=== PATIENT | female | born 1985 | race Two or more races ===

== ENCOUNTER → 2024-09-08 | Outpatient (CLI) | payer MEDICAID, SELFPAY ==
--- NOTE | 2024-09-08 | XR_ITS ---
Examination: Complete OB ultrasound greater than 14 weeks Date and time of exam: September 08, 2024 1200 Indications: Diagnosis high risk Findings: Viable intrauterine single fetus with single amniotic sac presentation variable Cardiac motion 150 BPM Placenta fundal grade 2 Insertion seen Amniotic fluid index 10.9 cm Cervix 2.8 cm Ovaries obscured by bowel gas. Composite estimated gestational age based on BPD, head circumference, abdominal circumference, femur length is 22 weeks 2 days Estimated weight 499 g. Survey of intracranial anatomy, spinal anatomy, abdominal anatomy, four-chamber heart performed with no abnormalities identified. Impression: Viable intrauterine gestation variable presentation
== END | disposition home or self-care (01) ==
PROVIDERS: Referring Provider Obstetrics & Gynecology; Visit Provider Obstetrics & Gynecology
DX: O09.92 Supervision of high risk pregnancy, unspecified, second trimester (principal); Z3A.22 22 weeks gestation of pregnancy
CPT/HCPCS: 76805

== ENCOUNTER 2024-12-31 13:40 | Outpatient (AMB) | payer MEDICAID, SELFPAY ==
[2024-12-31 14:06] VITALS: BP 128/81; PULSE 84; RESP 17; TEMP 36.7; O2SAT 99; BMI 33.8
--- NOTE | 2024-12-31 14:06 | AMB.OBINITIA ---
Vital Signs 12/31/24 14:06 Height 1.6 m Height Method Measured Weight 86.75 kg Weight Measurement Method Standing Scale BMI 33.8 BP 128/81 Blood Pressure Source Automatic Cuff Blood Pressure Location Right Upper Arm Position Sitting Respiration 17 Pulse 84 Pulse Source Monitor Temp 98.0 F Temp Source Temporal Artery Scan Pulse Oximetry (%) 99 Oxygen Delivery Method Room Air Allergies/Home Meds Allergies & Medications Allergies almond Allergy (Verified 01/02/25 08:47) Hives Medication Reconciliation vitamin#30 30 mg iron-10 mg iron-folic acid 1 mg-omg3 capsule 1 cap PO QDAY 01/23/20 [History Confirmed 01/02/25] Intake Visit Data Collection New Patient or Established: New Patient not seen in past 3 years at [facility] (considered New) Reason for Visit:: DARYA Consent obtained for Telemed Visit: No Seen by Clinical Staff ONLY (RN/MA): No Shear Scrapman Required: No Do You Feel Safe at Home: Yes Authorities Contacted: N/A PCP or OBGYN visit in last 3 months: No Hx Now: Yes Are you currently on any form of Control: No Pain Present Currently: No Pain Scale Used: Feldman-Lovett/Numerical Pain scale:: 0 Smoking Status Smoking Status: Never smoker Questionnaires Covid-19 Vaccine Questionnaire Has patient been vacinated for Covid-19 Have you been vacinated for Covid-19: No PHQ-9 PHQ-2 Over the last 2 weeks, how often have you been bothered by any of the following problems? 1. Little interest or pleasure in doing things: not at all 2. Feeling down, depressed, or hopeless: not at all Total score: 0 PHQ-9 3. Trouble falling or staying asleep, or sleeping too much: Not at all 4. Feeling tired or having little energy: Not at all 5. Poor appetite or overeating: Not at all 6. Feeling bad about yourself - or that you are a failure or have let yourself or your family down: Not at all 7. Trouble concentrating on things, such as reading the newspaper or watching television: Not at all 8. Moving or speaking so slowly that other people could have noticed? - Or the opposite - being so fidgety or restless that you have been moving around a lot more than usual: not at all 9. Thoughts that you would be better off or of hurting yourself in some way: Not at all Total score: 0 If you checked off any problems, how difficult have these problems made it for you to do your work, take care of things at home, or get along with other people?: not difficult at all Source: Developed by Drs. Gavino Nassar, Linda Dickinson, Vladislav Mejia and colleagues, with an educational kailyn from [employer]. Social History Living Situation History Lives With: Children Housing: House Tobacco History Smoking Status: Never smoker Alcohol History Alcohol Intake: Never Domestic Abuse History Do You Feel Safe at Home: Yes History of Present Illness HPI Narrative Tracey Rosen, , presents for routine visit at 38 weeks gestation. No contractions, LOF, VB and reports good FM. Denies FRAZIER, VC, and epigastric pain. - Tracey Rosen is a 39-year-old at 38 weeks and 2 days gestation presenting for transfer of care from [facility]. 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, [place] 01/10/25 by 09/08 US. No CTX/LOF/VB, good FM, denies FRAZIER/VC/epigastric pain. Mild contractions, recent swelling, BP 128 (? from baseline 114). Obesity (BMI 34) only risk factor. FHR >200, cephalic on bedside US. Plan: send to L&D (4th floor) for NST, BPP, Completo-B. Schedule 1-week f/u. Refer to support. Menstrual History Menstrual reliability: definite Flow: normal Menstrual regularity: regular Monthly: Yes Age at menarche: 14 On control pills at conception: No Date of positive home test: 05/07/24 OB History : 5 Para: 4 Hx # Pregnancies: 0 Hx Total # of Abortions (Spontaneous & Elective): 0 # of Living Children: 4 Delivery History 1st : Child's name: JACQUE MACEDO sex: male Gestational age at delivery (weeks): 42 Delivery type: vaginal weight (lbs): 3628.739 g weight (oz): 396.893 g History of depression before or after : No 2nd : Child's name: JOSE LUIS MACEDO sex: male Gestational age at delivery (weeks): 40 Delivery type: vaginal weight (lbs): 4082.331 g weight (oz): 170.097 g History of depression before or after : No 3rd : Child's name: PIERCE BAKER sex: male Gestational age at delivery (weeks): 40 Delivery type: vaginal weight (lbs): 3628.739 g History of depression before or after : No 4th : Child's name: JOAQUÍN BAKER sex: male Gestational age at delivery (weeks): 40 Delivery type: vaginal weight (lbs): 3175.147 g weight (oz): 425.243 g History of depression before or after : No Infection History & Risk Evaluation History of STDs: none HIV risk evaluation: low risk Hepatitis B risk evaluation: low risk Patient or partner has history of Genital Herpes: No Genetic Screening & History Genetic Screening/Teratology Counseling - Includes patient, baby's father, or anyone in either family with: 1. Patient's age 35 years or older as of estimated date of delivery: No 2. Thalassemia (Omani, Bulgarian, Mediterranean, or Background); MCV less than 80: No 3. Neural Tube Defect (Meningomyelocele, Spina Bifida, or Anencephaly): No 4. Congenital Heart Defect: No 5. Down Syndrome: No 6. Kin-Sachs (Ashkenazi Scientologist, Cajun, [place]): No 7. Valeria Disease (Ashkenazi Scientologist): No 8. Familial Dysautonomia (Ashkenazi Scientologist): No 9. Sickle Cell Disease or Trait (): No 10. Hemophilia or other blood disorders: No 11. Muscular Dystrophy: No 12. Cystic Fibrosis: No 13. Desoto's Chorea: No 14. Mental Retardation/Autism: No Infection History Other (see comments) Source: [employer] Exam General General Appearance: alert, in no apparent distress and healthy appearing Head Head exam: atraumatic Neck Neck exam: Present normal inspection and trachea midline Chest Chest inspection: Present normal inspection and symmetric chest wall rise External exam: Present normal external exam; Absent tenderness Neuro Neurological exam: Present oriented X3 Psych Psychiatric exam: Present normal affect and normal mood Office Procedures OB Clinic LOC & Office Proc's Nursing/Assessment Patient Status: Initial/New Patient OB Clinic Nursing Assessment: Medication Reconciliation, Update PMH in EMR and Vital Signs OB Clinic Coordination of Care: Complex Care and Chronic Disease 1-5, Consent,records obtained, informed consent, 4+ Authorizations needed, Lab and Imaging orders and Results/Orders obtained Special Needs: Heart tones New Patient Charge New Patient Point Assignment: [id number] New 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 Patient reports mild contractions. Bedside ultrasound revealed tachycardia with heart rate over 200 bpm. Maternal blood pressure noted to be 128, elevated from patient's usual 114. Patient reports recent onset of swelling. Obesity is a significant risk factor with BMI of 34. No history of gestational diabetes or other complications reported. Plan - Proceed to Labor and Delivery (4th floor) for further evaluation - Complete Non-Stress Test (NST) - Perform Completo-B - Conduct Biophysical Profile (BPP) - Schedule one-week follow-up appointment - Visit office for resources 1. Progress Reviewed gestational age, growth, and heart rate. Planned frequent visits (every 2 weeks until 36 weeks, then weekly). 2. Instructed patient to monitor movements and report decreases immediately. 3. Testing Counseled on routine third-trimester labs per guidelines. Discussed potential need for ultrasound or monitoring based on risk factors. 4. Preeclampsia Precaution Educated on preeclampsia signs: severe headache, vision changes, right upper quadrant pain, sudden swelling. Advised urgent reporting of symptoms and discussed blood pressure monitoring if high risk. 5. Labor Precautions Reviewed labor signs: regular contractions, pelvic pressure, back pain, bleeding, or fluid leakage. Instructed to seek immediate care for these symptoms. 6. Lifestyle and Delivery Preparation Reinforced vitamins, nutrition, and safe activity. Discussed plan, pain management, and . Advised on labor preparation (e.g., hospital bag) and expectations. 7. Psychosocial Support Assessed emotional well-being and offered resources for mental health or parenting support.
== END 2024-12-31 14:41 | disposition home or self-care (01) ==
LOC: HODSOBC 13:40
PROVIDERS: Supervising Provider Obstetrics & Gynecology; Visit Provider Obstetrics & Gynecology
DX: O09.523 Supervision of elderly multigravida, third trimester (principal); O09.893 Supervision of other high risk pregnancies, third trimester; O99.213 Obesity complicating pregnancy, third trimester; O36.8330 Maternal care for abnormalities of the fetal heart rate or rhythm, third trimester, not applicable or unspecified; Z3A.38 38 weeks gestation of pregnancy
CPT/HCPCS: 99203; G0463

== ENCOUNTER 2024-12-31 14:57 | Outpatient (CLI) | payer MEDICAID, SELFPAY ==
[2024-12-31] VITALS (24 sets, daily range): BP systolic 124; BP diastolic 70; PULSE 68–83; RESP 20–100; TEMP 36.6; O2SAT 89–100; BMI 33.3
--- NOTE | 2024-12-31 15:08 | XR_ITS ---
Examination: Complete OB ultrasound greater than 14 weeks Date and time of exam: December 31, 2024, 1544 hours INDICATIONS: tachycardia in the doctor's office today Findings: Viable intrauterine single fetus with single amniotic sac presentation cephalic. Cardiac motion 162 BPM. Placenta fundal grade 3. A vertical cord insertion 3 vessel seen. Amniotic fluid index 5.2 cm. spine maternal right. Cervix 4.9 cm. Ovaries obscured by bowel gas.. Composite estimated gestational age based on BPD, head circumference, abdominal circumference, femur length is 37 weeks 4 days. Estimated weight 3313 g. Survey of intracranial anatomy, spinal anatomy, abdominal anatomy, four-chamber heart performed with no abnormalities identified. Impression: Viable intrauterine gestation cephalic presentation..
--- NOTE | 2024-12-31 15:08 | XR_ITS ---
Examination: Biophysical profile, ultrasound Date and time of exam: December 31, 2024 1537 hours INDICATIONS: tachycardia in the doctor's office today Technique: Multiple transabdominal sonographic images of the pelvis abdomen obtained. Attention is directed to the breathing movement, gross body movement, amniotic fluid volume and tone. Findings: Amniotic fluid index 5.9 cm Total biophysical profile is 8 of 8. breathing movement is 2. Gross body movement is 2. tone is 2. Qualitative amniotic fluid volume is 2 Impression: Biophysical profile is 8 of 8.
== END 2024-12-31 17:00 | disposition home or self-care (01) ==
LOC: S4S1 14:59 → S4SX 14:59
PROVIDERS: Referring Provider Obstetrics & Gynecology; Visit Provider Obstetrics & Gynecology
DX: O36.8330 Maternal care for abnormalities of the fetal heart rate or rhythm, third trimester, not applicable or unspecified (principal); Z3A.37 37 weeks gestation of pregnancy
CPT/HCPCS: 59025; 76805; 76819

== ENCOUNTER 2025-01-02 08:36 | Outpatient (CLI) | payer MEDICAID, SELFPAY ==
[2025-01-02 08:38] VITALS: BP 119/80; PULSE 91; RESP 100; RESP 18; TEMP 36.6
--- NOTE | 2025-01-02 08:41 | XR_ITS ---
Examination: Biophysical profile, ultrasound Date and time of exam: January 02, 2025, 0853 hrs. Indications: Low amniotic fluid index 5.2 cm on ultrasound December 31, 2024 Technique: Multiple transabdominal sonographic images of the pelvis abdomen obtained. Attention is directed to the breathing movement, gross body movement, amniotic fluid volume and tone. Findings: Amniotic fluid index 5.9 cm Total biophysical profile is 8 of 8. breathing movement is 2. Gross body movement is 2. tone is 2. Qualitative amniotic fluid volume is 2 Impression: Biophysical profile is 8 of 8.
[2025-01-02 08:43] VITALS: BMI 33.9
[2025-01-02 08:44] VITALS: PULSE 90; O2SAT 99
[2025-01-02 08:49] VITALS: PULSE 108; O2SAT 100
[2025-01-02 08:54] VITALS: PULSE 95; O2SAT 99
[2025-01-02 08:59] VITALS: PULSE 84; O2SAT 99
[2025-01-02 09:04] VITALS: PULSE 94; O2SAT 99
== END 2025-01-02 09:11 | disposition home or self-care (01) ==
LOC: S4S1 08:37 → S4SX 08:39
PROVIDERS: Referring Provider Obstetrics & Gynecology; Visit Provider Obstetrics & Gynecology
DX: Z34.83 Encounter for supervision of other normal pregnancy, third trimester (principal); Z36.89 Encounter for other specified antenatal screening; Z3A.38 38 weeks gestation of pregnancy
CPT/HCPCS: 59025; 76819

== ENCOUNTER 2025-01-05 10:21 | Outpatient (AMB) | payer MEDICAID, SELFPAY ==
--- NOTE | 2025-01-05 10:37 | AMB.OBVISIT ---
Vital Signs 01/05/25 10:38 Weight 84.992 kg Weight Measurement Method Standing Scale BP 122/82 Blood Pressure Source Automatic Cuff Blood Pressure Location Right Upper Arm Position Sitting Respiration 17 Pulse 94 Pulse Source Monitor Temp 98.0 F Temp Source Temporal Artery Scan Pulse Oximetry (%) 99 Oxygen Delivery Method Room Air Allergies/Home Meds Allergies & Medications Allergies almond Allergy (Verified 01/05/25 10:38) Hives Intake Visit Data Collection New Patient or Established: Established Patient (seen at [facility] within 3 years) Reason for Visit:: OBC Consent obtained for Telemed Visit: No Seen by Clinical Staff ONLY (RN/MA): No Bias Binding Folder Required: No Do You Feel Safe at Home: Yes Authorities Contacted: N/A PCP or OBGYN visit in last 3 months: Yes Date of Last PCP or OBGYN visit: 01/02/25 Hx Now: Yes Are you currently on any form of Control: No Pain Present Currently: No Pain Scale Used: Feldman-Lovett/Numerical Pain scale:: 0 Smoking Status Smoking Status: Never smoker Questionnaires Covid-19 Vaccine Questionnaire Has patient been vacinated for Covid-19 Have you been vacinated for Covid-19: No PHQ-9 PHQ-2 Over the last 2 weeks, how often have you been bothered by any of the following problems? 1. Little interest or pleasure in doing things: not at all PHQ-9 8. Moving or speaking so slowly that other people could have noticed? - Or the opposite - being so fidgety or restless that you have been moving around a lot more than usual: not at all Source: Developed by Drs. Gavino Nassar, Linda Dickinson, Vladislav Mejia and colleagues, with an educational kailyn from [employer]. 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 No contractions, LOF, VB and reports good FM. Denies FRAZIER, VC, and epigastric pain. - Tracey Rosen is a 39-year-old female presenting for routine care at 39 weeks and 2 days gestation. - She is a transfer of care from [facility]. - Recent medical events: - At last appointment, tachycardia to 200 was noted. - Patient underwent NST and biophysical profile, which were within normal limits. - Test repeated after 24 hours, results again within normal limits. - Patient visited the ER for evaluation, documents available. - Obstetric history: - 5, Para 4 - History of induction for all previous pregnancies - Last : water broke after 3rd induction pill, progressed without Pitocin - Current : - Due date: January 10 (upcoming Saturday) - No reported contractions, leaking, bleeding, or decreased movement - Patient denies any current concerns or symptoms Care OB Visit Log OB Flowsheet Initial Weight: Not Recorded Date <del>?</del> EGA Weight BP Alb Glu CTX Pres Fundal ht FHR Mov Dilation Station Effacement Hx Notes Visit Note 12/31/24 <del>?</del> 38w 4d 86.75 kg 128/81 occasional cephalic 39 200 active 38w2d transferred from [facility], [place] 01/10/25 by 09/08 US. No CTX/LOF/VB, good FM, denies FRAZIER/VC/epigastric pain. Mild contractions, recent swelling, BP 128 (? from baseline 114). Obesity (BMI 34) only risk factor. FHR >200, cephalic on bedside US. Plan: send to L&D (4th floor) for NST, BPP, Completo-B. Schedule 1-week f/u. Refer to support. 01/05/25 <del>?</del> 39w 2d 84.992 kg 122/82 occasional cephalic 40 135 active 39w2d here for routine visit. No CTX/LOF/VB, FM good. Transfer from [facility]. Prior FHR 200?NST/BPP x2 normal, ER visit reviewed. GBS neg. Hx induction x4. FHR today 135 Plan: induce 01/17 (41w), call charge nurse at 8am, Tdap given, return if CTX/LOF/VB/FM?. [place] Calculator Estimated Delivery Date Method Current WG Current Estimate 01/10/25 Ultrasound #1 39w 2d Exam General General Appearance: alert, in no apparent distress and healthy appearing Head Head exam: atraumatic Neck Neck exam: Present normal inspection and trachea midline Chest Chest inspection: Present normal inspection and symmetric chest wall rise External exam: Present normal external exam; Absent tenderness Neuro Neurological exam: Present oriented X3 Psych Psychiatric exam: Present normal affect and normal mood Office Procedures OB Clinic LOC & Office Proc's Nursing/Assessment Patient Status: Established Patient OB Clinic Nursing Assessment: Medication Reconciliation, Update PMH in EMR and Vital Signs OB Clinic Coordination of Care: Complex Care and Chronic Disease 1-5, Consent,records obtained, informed consent, Education Simp Pt/Fam, Lab and Imaging orders and Results/Orders obtained Special Needs: Heart tones Established Patient Charge Established Patient Point Assignment: 125 Established Patient Point Charge: EP Level 4 (120-155) Assessment & Plan Diagnosis / Problem List (1) Supervision of high risk , unspecified, third trimester: Status: Acute (2) Obesity affecting in third trimester: Status: Acute Plan Problem List - , 39 weeks and 2 days - Advanced maternal age - Grand multiparity Assessment patient at 39 weeks and 2 days gestation presenting for routine care. Patient is a transfer of care from [facility]. Previous appointment noted tachycardia to 200, prompting NST and biophysical profile, which were within normal limits. Repeat testing after 24 hours was also within normal limits. Current heart rate is 135, which is normal. Patient has a history of induced labor for all previous pregnancies. GBS status is negative. Advanced maternal age (AMA) and multi-parity are noted as risk factors. Plan - Induction of labor scheduled for January 17, 2025 (41 weeks gestation) - Patient to call the charge nurse at the provided number on the morning of January 17 at 8:00 AM for specific instructions - Administer Tdap vaccine - No further appointments scheduled before induction date - Patient instructed to seek immediate medical attention if experiencing contractions, fluid leakage, bleeding, or decreased movement prior to scheduled induction 1. Progress Reviewed gestational age, growth, and heart rate. Planned frequent visits (every 2 weeks until 36 weeks, then weekly). 2. Instructed patient to monitor movements and report decreases immediately. 3. Testing Counseled on routine third-trimester labs per guidelines. Discussed potential need for ultrasound or monitoring based on risk factors. 4. Preeclampsia Precaution Educated on preeclampsia signs: severe headache, vision changes, right upper quadrant pain, sudden swelling. Advised urgent reporting of symptoms and discussed blood pressure monitoring if high risk. 5. Labor Precautions Reviewed labor signs: regular contractions, pelvic pressure, back pain, bleeding, or fluid leakage. Instructed to seek immediate care for these symptoms. 6. Lifestyle and Delivery Preparation Reinforced vitamins, nutrition, and safe activity. Discussed plan, pain management, and . Advised on labor preparation (e.g., hospital bag) and expectations. 7. Psychosocial Support Assessed emotional well-being and offered resources for mental health or parenting support.
[2025-01-05 10:38] VITALS: BP 122/82; PULSE 94; RESP 17; TEMP 36.7; O2SAT 99
== END 2025-01-05 10:52 | disposition home or self-care (01) ==
LOC: HODSOBC 10:21
PROVIDERS: Supervising Provider Obstetrics & Gynecology; Visit Provider Obstetrics & Gynecology
DX: O09.523 Supervision of elderly multigravida, third trimester (principal); O09.893 Supervision of other high risk pregnancies, third trimester; O99.213 Obesity complicating pregnancy, third trimester; Z3A.39 39 weeks gestation of pregnancy
CPT/HCPCS: 99214; G0463

== ENCOUNTER 2025-01-16 19:03 | Inpatient (IN) | payer MEDICAID, SELFPAY ==
[2025-01-16] VITALS (19 sets, daily range): BP systolic 103–138; BP diastolic 51–91; PULSE 90–116; RESP 18–100; TEMP 36.7–37.2; O2SAT 97–100; BMI 33.6
[2025-01-16 19:33] LABS: ROM Kit Exp Date# 11152027; ROM Kit Lot # 58102387; ROM Swab Mixed By: RAWLT; Rupture of Fetal Membranes Positive (Negative); Swb Mxed in Solvent 1 min? Yes
[2025-01-16] MEDS: RINGERS LACTATED 1000 ML 1,000 ML 100 ML IV (20:17)
[2025-01-16 20:37] LABS: Basophils # (Auto) 0.0 Thou/mm3 (0.0-0.2); Basophils % (Auto) 0 % (0-2.5); Eosinophils # (Auto) 0.1 Thou/mm3 (0.0-0.5); Eosinophils % (Auto) 1 % (0-10); Hematocrit 28.4 % (36.0-46.0); Hemoglobin 8.9 g/dL (12.0-16.0); Immature Granulocytes Auto 0.05 Thou/mm3 (0.00-0.00); Lymphocytes # (Auto) 2.6 Thou/mm3 (1.0-4.8); Lymphocytes % (Auto) 29 % (10-50); Mean Corpuscular HGB Conc 31.3 g/dl (31.0-37.0); Mean Corpuscular Hemoglobin 22.9 pg (25.0-35.0); Mean Corpuscular Volume 73 fL (80-100); Monocytes # (Auto) 0.6 Thou/mm3 (0.0-0.8); Monocytes % (Auto) 7 % (0-12); Neutrophils # (Auto) 5.6 Thou/mm3 (1.8-7.7); Neutrophils % (Auto) 63 % (37-80); Nucleated Red Blood Cell # 0.00 Thou/mm3 (0.00-0.00); Nucleated Red Blood Cell % 0 /100 WBC (0); Platelet Count 227 Thou/mm3 (140-440); RDW Standard Deviation 44.9 fL (36.4-46.3); Red Blood Count 3.89 Miln/mm3 (4.00-5.20); White Blood Count 8.9 Thou/mm3 (3.6-11.0)
--- NOTE | 2025-01-16 21:04 | PD.LDHP ---
Documentation for date of: 01/16/25 OB Labor/Induct. HPI History of Present Illness Chief complaint: leakage of fluid : 5 Para: 4 Term pregnancies: 4 pregnancies: 0 Living children: 4 History of Abortions: Spontaneous and Elective: 0 History of Vaginal deliveries: 4 History of sections: No History of : No Date of last menstrual period: 04/13/24 [place]TON: 01/18/25 Gestational Age (weeks): 40 Gestational Age (days): 5 Gestational age based on last menstrual period: 39 History of present illness: Patient presents for loss of fluid, clear, this evening. No regular/painful ctx. No vaginal bleeding. Normal movement. No fevers/chills. History of Present Dating criteria: based on 2nd trimester US only (Per Dr. Toth's notes: unsure lmp, so dating by ultrasound done at 22wk with edc 01/18/25) Adequate Care: No (late to care) Narrative: Hx of 4 at term, proven to 9lb complicated by: AMA (age 39) Elevated BMI (current BMI 33.7) Rubella non-immune Anemia, Rx iron Grandmultiparity Hx of macrosomia (9lb), 1hr glucola 137 Labs Maternal Blood Type: O Pos Labs: Negative: RPR, Hepatitis B, Rubella Titre and HIV and Unknown: Chlamydia, Gonorrhea, Herpes Type 1, Herpes Type 2, Group Beta Strep and Covid-19 Narrative: GBS negative per Dr. Harrison's office notes 1hr glucola 137 Review of Systems Review of Systems Narrative Review of Systems: Review of Systems Systems Reviewed: All systems reviewed, normal except as documented Constitutional Constitutional: Denies body ache(s), Denies chills, Denies fever(s) and Denies headache(s) ENT Ears, Nose, Mouth, and Throat: Denies headache(s) and Denies vertigo Cardiovascular Cardiovascular: Denies chest pain, Denies palpitations, Denies dyspnea and Denies syncope Respiratory Respiratory: Denies cough, Denies dyspnea Gastrointestinal Gastrointestinal: Denies nausea and Denies vomiting Neurologic Neurologic: Denies convulsions, Denies headache(s), Denies other visual disturbances, Denies syncope and Denies vertigo Past Medical History Family History OTHER FAMILY HX: non-contributory Surgical History SURGICAL: Negative Section OTHER SURGICAL HX: denies Social History SOCIAL: No tobacco/ETOH/illicit drug use Past Medical History Comments PMH COMMENT: Elevated BMI (current BMI 33.7) Rubella non-immune Meds Home Medications and Allergies Home Medications ?Medication ?Instructions ?Recorded ?Confirmed ?Type vitamin#30 30 mg iron-10 1 cap PO QDAY 01/23/20 01/16/25 History mg iron-folic acid 1 mg-omg3 capsule Allergies Allergy/AdvReac Type Severity Reaction Status Date / Time almond Allergy Hives Verified 01/16/25 19:46 OB Exam Physical Exam Vital signs: Temp Pulse Resp BP Pulse Ox 98.0 F 102 H 18 137/68 H 100 01/16/25 20:52 01/16/25 20:56 01/16/25 20:52 01/16/25 20:56 01/16/25 19:27 Narrative: General: well developed, well nourished, no acute distress, conversant Cardiac: normal heart rate Lungs: breathing without distress Abdomen: soft, gravid, non-tender, no rebound or guarding Extremities: no pain with palpation of calves Detailed Labor and Delivery Exam Dilation (cm): 2 Effacement (%): 50 Cervix position: mid station: -3 Presentation: Vertex Membranes: ruptured (amnisure positive) Amniotic fluid: clear Baseline heart rate: 145 monitor accelerations: 15x15 monitor decelerations: None supervisor intermediates variability: Moderate (11-25) Contraction frequency (min): 2-3 OB Results Labs 01/16/25 19:55 Labs: Short CBC 01/16/25 Range/Units 19:55 WBC 8.9 (3.6-11.0) Thou/mm3 Hgb 8.9 L (12.0-16.0) g/dL Hct 28.4 L (36.0-46.0) % Plt Count 227 (140-440) Thou/mm3 OB Assessment & Plan Assessment and Plan (1) SROM (spontaneous rupture of membranes): Status: Acute Assessment and plan: Tracey is a 39yo with SIUP at 40&5wk presenting with SROM, clear this evening. AmniSure positive. Regular contractions, SCE: 2/50/-3. Vitals wnl, benign exam. Reassuring assessment. PMhx/ complicated by: AMA (age 39) Elevated BMI (current BMI 33.7) Rubella non-immune Anemia, Rx iron Grandmultiparity Hx of macrosomia (9lb), 1hr glucola 137 Transfer of care from [facility] to Dr. Harrison late 3rd trimester Plan: -Admit to L&D -Establish IV, routine labs -CEFM -Clear liquid diet -Ornament[employer]ctor/consent re: , augmentation of labor -GBS status negative per office notes, working to confirm by requesting lab records -Anticipate -Safe to proceed (2) 40 weeks gestation of : Status: Acute (3) Supervision of high risk , unspecified, third trimester: Status: Acute (4) Obesity affecting in third trimester: Status: Acute (5) Advanced maternal age (AMA) in : Status: Acute (4) Obesity affecting in third trimester Qualifiers: Obesity type affecting : unspecified obesity Qualified Code(s): O99.213 - Obesity complicating , third trimester
[2025-01-16 21:12] LABS: Syphilis Nonreactive (Nonreactive)
[2025-01-16 22:34] LABS: Amphetamine/Metham Scrn,Ur OB Negative (Negative); Benzoylecgonine Screen, Ur OB Negative (Negative); Opiate Screen,Urine OB Negative (Negative); THC Screen,Urine OB Negative (Negative)
[2025-01-16] MEDS: OXYTOCIN in NS 20 units 20 UNIT/1,000 ML BAG 125 UNIT IV (23:45)
[2025-01-16] MEDS: METHYLERGONOVINE INJ 0.2 MG/ML VIAL IM (23:53)
[2025-01-17] VITALS (12 sets, daily range): BP systolic 98–124; BP diastolic 57–74; PULSE 74–97; RESP 16–18; TEMP 36.5–37.1; O2SAT 97–98
--- NOTE | 2025-01-17 00:04 | PD.LDDELS ---
Data (Boggs) Data Hx Section: No : 5 Term: 4 : 0 Livin Abortions: Spontaneous & Theraputic: 0 Delivery Data (B[facility]gs) Labor Data Initiation of labor: Spontaneous Induction/Augmentation Agent: None ROM date: 01/16/25 ROM time: 18:00 Amniotic membrane rupture type: Spontaneous Amniotic fluid description: Clear Delivery Data Onset of labor date: 01/16/25 Onset of labor time: 21:05 Complete dilation date: 01/16/25 Complete dilation time: 23:40 delivery date: 01/16/25 delivery time: 23:42 Placenta delivery date: 01/16/25 Placenta delivery time: 23:49 Stage 1 total time: Labor - Stage 1 Duration 2 hours and 35 minutes Delivered by: Tena Espino Delivery nurse: Zahra Fischer nurse: Anamika Vasquez Business [employer] Instructor at delivery: No Delivery Method Delivery method: Normal Vaginal Delivery Presentation: Vertex Anesthesia Type Anesthesia Type: None Placenta Placenta delivery description: Spontaneous Cord blood sent to lab: Yes cord blood collection: Cord Blood Type Episiotomy Episiotomy description: None EBL Estimated blood loss (ml): 250 Umbilical Cord cord description: 3 Vessels Additional Procedures Tracey is a 39yo [id number] s/p uncomplicated at 40&5wk after presenting with SROM, delivering at 2342 on 01/17/2025. On presentation, SCE was 2/50/-2. She declined epidural and rapidly progressed to C/C/0 at which point she began pushing. I was called by RN for delivery. I went to bedside immediately, and patient delivered with RN right as I entered the room. had spontaneous cry and was vigorous. Apgars 8/9. Infant placed on maternal abdomen where nose/mouth were suctioned and infant dried/stimulated. After approximately 2 minutes, cord was clamped x2 and cut by FOB. Cord blood collected for typing. With fundal massage and cord traction, placenta delivered spontaneously and intact with 3 vessel centrally inserted cord. Bimanual massage performed and IV pitocin given per protocol with fundus then firm at u-1cm and hemostasis noted. Inspection of perineum and vagina revealed no lacerations. Small trickle of blood, so sweep just within cervix/NAFISA performed which retrieved a small amount of clot. 0.2mg IM methergine given with observed hemostasis after. All counts correct x2. Mom and infant were doing well when I left the room. Tena Espino MD Complications Complications: none [place] Data ([facility]gs) Data order: 1 Pocahontas's gender: Female weight (gms): 3790 g Weight (pounds): 8 lbs and 5.7 ozs Poc[place]as length: 21 cm 1 minute: 8 5 minutes: 9
[2025-01-17] MEDS: IBUPROFEN TAB 400 MG TABLET 800 MG PO ×2 (00:05→15:24)
[2025-01-17 06:48] LABS: Basophils # (Auto) 0.0 Thou/mm3 (0.0-0.2); Basophils % (Auto) 0 % (0-2.5); Eosinophils # (Auto) 0.0 Thou/mm3 (0.0-0.5); Eosinophils % (Auto) 0 % (0-10); Hematocrit 28.7 % (36.0-46.0); Hemoglobin 8.9 g/dL (12.0-16.0); Immature Granulocytes Auto 0.09 Thou/mm3 (0.00-0.00); Lymphocytes # (Auto) 1.8 Thou/mm3 (1.0-4.8); Lymphocytes % (Auto) 12 % (10-50); Mean Corpuscular HGB Conc 31.0 g/dl (31.0-37.0); Mean Corpuscular Hemoglobin 23.6 pg (25.0-35.0); Mean Corpuscular Volume 76 fL (80-100); Monocytes # (Auto) 1.1 Thou/mm3 (0.0-0.8); Monocytes % (Auto) 8 % (0-12); Neutrophils # (Auto) 11.8 Thou/mm3 (1.8-7.7); Neutrophils % (Auto) 80 % (37-80); Nucleated Red Blood Cell # 0.00 Thou/mm3 (0.00-0.00); Nucleated Red Blood Cell % 0 /100 WBC (0); Platelet Count 195 Thou/mm3 (140-440); RDW Standard Deviation 46.7 fL (36.4-46.3); Red Blood Count 3.77 Miln/mm3 (4.00-5.20); White Blood Count 14.7 Thou/mm3 (3.6-11.0)
--- NOTE | 2025-01-17 07:17 | PD.LDPPPRG ---
Subjective Subjective Interval history: Patient doing well overall. Minimal discomfort. She is ambulating no lightheadedness/dizziness. Voiding spontaneously, no issues. Tolerating regular diet without nausea/vomiting. Lochia tapering as expected. No fevers/chills, no CP/SOB. Exam Vital Signs Temp Pulse Resp BP Pulse Ox O2 Del Method 97.7 F 82 18 106/64 98 Room Air 01/17/25 04:00 01/17/25 04:00 01/17/25 04:00 01/17/25 04:00 01/17/25 04:00 01/17/25 04:00 Narrative Exam General: well developed, well nourished, no acute distress, conversant Cardiac: normal heart rate Lungs: breathing without distress Abdomen: soft, post-gravid, non-tender, no rebound or guarding, Fundus firm at u-3cm. Extremities: no pain with palpation of calves, trace edema of BLE Objective Labs 01/16/25 19:55 Labs: Laboratory Results - last 24 hr 01/16/25 01/16/25 01/16/25 19:18 19:45 19:55 WBC 8.9 RBC 3.89 L Hgb 8.9 L Hct 28.4 L MCV 73 L MCH 22.9 L MCHC 31.3 RDW Std Deviation 44.9 Plt Count 227 Neut % (Auto) 63 Lymph % (Auto) 29 Grayson % (Auto) 7 Eos % (Auto) 1 Baso % (Auto) 0 Neut # (Auto) 5.6 Lymph # (Auto) 2.6 Grayson # (Auto) 0.6 Eos # (Auto) 0.1 Baso # (Auto) 0.0 Immature Gran # (Auto) 0.05 H Absolute Nucleated RBC 0.00 Immature Gran % 1 H Nucleated RBC % 0 Membrane Rupture Positive A Urine Opiates Screen Negative U Amphetamin/Meth Scrn Negative U Cocaine Metab Screen Negative U Marijuana (THC) Screen Negative Syphilis Serology Nonreactive Blood Type O Positive Antibody Screen NEGATIVE Crossmatch See Detail Blood Bank Wristband ID Yes Assessment & Plan Problem List (1) Vaginal delivery: Status: Acute Assessment and plan: Tracey is a 39yo [id number] s/p uncomplicated after presenting with SROM, doing well on PPD 1. Vitals wnl, benign exam. Hemodynamically stable with no evidence of infection. Hgb pending, on admission 8.9. complicated by: AMA (age 39) Elevated BMI (current BMI 33.7) Rubella non-immune Anemia, Rx iron Grandmultiparity Hx of macrosomia (9lb), 1hr glucola 137 Transfer [facility] from [facility] to Dr. Harrison late 3rd trimester Plan: -Continue routine care -Regular diet -Encourage ambulation -Anticipate discharge home tomorrow if meeting all milestones (2) SROM (spontaneous rupture of membranes): Status: Acute (3) 40 weeks gestation of : Status: Acute (4) Supervision of high risk , unspecified, third trimester: Status: Acute (5) Obesity affecting in third trimester: Status: Acute (6) Advanced maternal age (AMA) in : Status: Acute Time Spent With Patient Time: Total time spent is greater than 50% in coordination of care (as documented) at patient's floor/unit and/or counseling patient:
[2025-01-17] MEDS: DOCUSATE SOD 100 MG CAPSULE PO ×2 (08:44→20:47)
[2025-01-17] MEDS: ACETAMINOPHEN 325 MG TABLET 650 MG PO (08:44)
[2025-01-17 09:12] LABS: Chlamydia trachomatis PCR Negative (Not Detect); Neisseria Gonorrhoeae DNA PCR Negative (Not Detect); Trichomonas Negative (Negative)
--- NOTE | 2025-01-17 13:00 | PC.CC ---
ASW completed a biopsychosocial assessment with the pt at bedside. FOB was present and bonding with the . Pt reported the is on lights and she will d/c hopefully tomorrow depending the the baby. 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 Pt reports she was late to care because her clinic did not have a OB and she was referred to another OB that delayed her care. Pt reports she is ready for the , has diapers and clothes all she needs for now, at home. Pt reports the FOB will be their transportation home. Pt reports she delivered vaginally and delivered at 40 weeks and 6 days. Pt reports she is and reports there are no issues with latching on to her breast. Pt reports the Peds will be Dr. Aguilera from [facility]. Pt reports she is not receiving Food stamps or Law aid. Pt confirmed her demographics and reports she is receiving medi-judy. Pt denies substance use/abuse and denies h/o post depression. Pt dneid taking medications for MH purposes. Pt reports she is ready for the . There are no concerns with SS and pt is cleared by SS.
[2025-01-18 04:00] VITALS: BP 113/71; PULSE 72; RESP 16; TEMP 36.6; O2SAT 98
[2025-01-18] MEDS: IBUPROFEN TAB 400 MG TABLET 800 MG PO (06:14)
[2025-01-18 07:49] VITALS: BP 114/76; PULSE 90; RESP 16; TEMP 36.6; O2SAT 98
--- NOTE | 2025-01-18 08:12 | PC.NURSE ---
patient declined MMR vaccine.
[2025-01-18] MEDS: DOCUSATE SOD 100 MG CAPSULE PO (08:17)
--- NOTE | 2025-01-18 08:46 | PD.LDDS ---
DS: Providers Provider Date of admission: 01/16/25 19:42 Primary care physician: Physician No Primary/Family Admitting Provider: Tena Espino MD Attending Provider on Admission: Tena Espino MD Consults: 01/16/25 23:58 Referral Routine Comment: Attending Provider on DC: Tena Espino MD Discharging Provider: Tena Espino MD DS: Diagnosis Discharge Diagnosis (1) Vaginal delivery: Status: Acute (2) Advanced maternal age (AMA) in : Status: Acute (3) 40 weeks gestation of : Status: Acute (4) SROM (spontaneous rupture of membranes): Status: Acute (5) Supervision of high risk , unspecified, third trimester: Status: Acute Problem List Completed Was Problem List Reviewed/Reconciled?: Yes Summary/Hosp Course Brief History: Tracey is a 39yo [id number] s/p uncomplicated at 40&5wk after presenting with SROM, delivering at 2342 on 01/17. She has had an uncomplicated course, meeting all milestones and feels ready for discharge home. She is ambulating without lightheadedness, tolerating regular diet no n/v, spontaneously voiding without issue. She has no chest pain or shortness of breath. No fevers or chills. Minimal, appropriate discomfort. Vitals normal, benign exam. Hemodynamically stable with no evidence of infection. PP Hgb 8.9. Peripartum Data Delivery Method: Normal Vaginal Delivery Episiotomy Description: None Status at Discharge Functional status at discharge: independent ambulation Overall status at discharge: patient is back to baseline Time Spent with Patient Time attestation: Total time spent providing and/or coordinating discharge services: Exam Vital Signs Temp Pulse Resp BP Pulse Ox O2 Del Method 97.8 F 90 16 114/76 98 Room Air 01/18/25 07:49 01/18/25 07:49 01/18/25 07:49 01/18/25 07:49 01/18/25 07:49 01/18/25 07:49 Narrative Exam General: well developed, well nourished, no acute distress, conversant Cardiac: normal heart rate Lungs: breathing without distress Abdomen: soft, post-gravid, non-tender, no rebound or guarding, Fundus firm at u-3cm. Extremities: no pain with palpation of calves, trace edema of BLE Discharge Plan Plan Patient Disposition: HOME (Self Care) Patient condition on transfer: Stable Prescriptions/Referrals Prescriptions/Med Rec: New docusate sodium 100 mg Capsule 100 mg PO BID 10 Days Qty: 20 0RF ibuprofen 800 mg tablet 800 mg PO Q8H PRN (Reason: See Comments) 10 Days Qty: 20 0RF ferrous sulfate 325 mg (65 mg iron) tablet 325 mg PO QDAY Qty: 30 0RF No Action PNV #[id number] 30 mg iron-10 mg iron-1 mg Capsule 1 cap PO QDAY Referrals: No Primary/Family,Physician [Primary Care Provider] - Patient/Caregiver Discharge Instructions Discharge Activity: activity as tolerated and other Other Discharge Activity Instructions:: vaginal rest and no heavy lifting for 6 weeks Other Discharge Diet Instructions: regular diet Education Materials: After a Vaginal , Storing Expressed Milk, Nutrition While , : Caring for Yourself Print Language: Slovenian Activity Restrictions/Additional Instructions: follow up with Dr. Harrison in 2-4 weeks, call clinic for appointment vaginal rest and no heavy lifting for 6 weeks Stand Alone Forms: Larissa Award Info., Patient Portal Info Letter, Work/Release Restrictions Discharge Order Discharge Orders: Discharge (Routine); Ordered 01/18/25 Ordered By: Tena Espino Planned Discharge Date 01/18/25
== END 2025-01-18 11:45 | disposition home or self-care (01) | DRG 560 ==
LOC: S4SX 01-17 00:02 → S4NX 01-17 07:33 → S4SX 01-18 06:34
PROVIDERS: Admitting Provider Obstetrics & Gynecology; Visit Provider Obstetrics & Gynecology
DX: O42.02 Full-term premature rupture of membranes, onset of labor within 24 hours of rupture (principal); Z37.0 Single live birth; Z3A.40 40 weeks gestation of pregnancy; O99.214 Obesity complicating childbirth
CPT/HCPCS: 36415; 80307; 84112; 85025; 86780; 86850; 86900; 86901; 86923; 87491; 87591; 87661; J2210; J2590; J7120; A9270